=== PATIENT | female | born 1945 | race Caucasian/White ===

== ENCOUNTER → 2017-07-07 | Outpatient (CLI) | payer MEDICARE, MEDICAID ==
[~2017-07-07] MED LIST: ALLO100T30 PO; ANAS1TAB PO; ASPI-496 PO; ASPI81TA59 PO; CALC-151 PO; CHOL200074 PO; LISI2.5T PO; METF10002 PO; PRAV40TA2 PO
== END ==
LOC: CVU 14:05
PROVIDERS: ATTEND Family Medicine
DX: E11.9 Type 2 diabetes mellitus without complications (principal); I10 Essential (primary) hypertension; E78.5 Hyperlipidemia, unspecified; Z90.12 Acquired absence of left breast and nipple; Z85.3 Personal history of malignant neoplasm of breast; Z87.891 Personal history of nicotine dependence
CPT/HCPCS: 93922

== ENCOUNTER → 2017-11-24 | Outpatient (CLI) | payer MEDICARE, MEDICAID | END | disposition home or self-care (01) | LOC: CFH 10:30 | PROVIDERS: ATTEND Internal Medicine Hematology & Oncology | DX: Z12.31 Encounter for screening mammogram for malignant neoplasm of breast (principal); E11.9 Type 2 diabetes mellitus without complications; Z85.3 Personal history of malignant neoplasm of breast; Z87.891 Personal history of nicotine dependence | CPT/HCPCS: 77063; 77067 ==

== ENCOUNTER → 2017-12-21 | Outpatient (CLI) | payer MEDICARE, MEDICAID | END | disposition home or self-care (01) | LOC: CFH 13:22 | PROVIDERS: ATTEND Internal Medicine Hematology & Oncology | DX: C50.412 Malignant neoplasm of upper-outer quadrant of left female breast (principal); Z90.12 Acquired absence of left breast and nipple | CPT/HCPCS: 76377; 76642 ==

== ENCOUNTER → 2018-03-18 | Outpatient (CLI) | payer MEDICARE, MEDICAID | END | disposition home or self-care (01) | LOC: CFH 12:59 | PROVIDERS: ATTEND Internal Medicine Hematology & Oncology | DX: M85.88 Other specified disorders of bone density and structure, other site (principal); C50.412 Malignant neoplasm of upper-outer quadrant of left female breast | CPT/HCPCS: 77080 ==

== ENCOUNTER 2018-10-17 16:33 | Outpatient (CLI) | payer MEDICAID, MEDICARE | END 2018-10-17 23:59 | disposition home or self-care (01) | LOC: RAD 16:33 | DX: M79.641 Pain in right hand (principal); M79.89 Other specified soft tissue disorders ==

== ENCOUNTER → 2019-01-10 | Outpatient (CLI) | payer MEDICAID, MEDICARE | END | disposition home or self-care (01) | LOC: CFH 13:22 | PROVIDERS: ATTEND Internal Medicine Hematology & Oncology | DX: N60.01 Solitary cyst of right breast (principal); C50.412 Malignant neoplasm of upper-outer quadrant of left female breast | CPT/HCPCS: 76641 ==